=== PATIENT | female | born 1970 | race Caucasian/White ===

== ENCOUNTER → 2016-07-04 13:20 | Outpatient (CLI) | payer MEDICARE ==
[2013-04-14 14:31] VITALS: BMI 24.8
[~2016-07-04 13:20] MED LIST: ACIPHEX20 MG PO; ATIVAN2 MG PO; DURAGESIC1 PATCH .3; OXYCODONE HCL10 MG PO; OXYCONTIN80 MG PO; PHENAZOPYRIDIN100 MG PO; PHENERGAN25 M1 PO; PROZAC40 MG PO
== END | disposition home or self-care (01) ==
LOC: D.CT 06-27 17:30
DX: Z98.890 Other specified postprocedural states (principal)

== ENCOUNTER → 2017-05-11 22:30 | Outpatient (CLI) | payer MEDICARE ==
[2013-04-14 14:31] VITALS: BMI 24.8
== END | disposition home or self-care (01) ==
LOC: D.MAMMO 09:00
DX: N63.21 Unspecified lump in the left breast, upper outer quadrant (principal); Z80.3 Family history of malignant neoplasm of breast

== ENCOUNTER → 2017-08-24 11:22 | Outpatient (CLI) | payer MEDICARE ==
[2013-04-14 14:31] VITALS: BMI 24.8
== END | disposition home or self-care (01) ==
LOC: D.CT 08-10 11:30
DX: N63.21 Unspecified lump in the left breast, upper outer quadrant (principal)

== ENCOUNTER → 2018-11-11 08:56 | Outpatient (CLI) | payer MEDICARE ==
[2013-04-14 14:31] VITALS: BMI 24.8
== END | disposition home or self-care (01) ==
LOC: D.NM 08:56
PROVIDERS: ATTEND Emergency Medicine
DX: C50.012 Malignant neoplasm of nipple and areola, left female breast (principal)

== ENCOUNTER 2019-10-31 11:52 | Outpatient (CLI) | payer MEDICARE ==
[~2019-10-31] VITALS: Ht 172.7 cm; Wt 50.9 kg
[2019-10-31] MEDS ORDERED: RESTORIL15 MG PO (12:43)
[2019-10-31 12:54] VITALS: BP 85/52; Ht 172.7 cm; Wt 50.9 kg
--- NOTE | 2019-10-31 17:24 | NUR ---
1700 PORT FLUSHED WITH 10ML WITH NS. NEEDLE REMOVED AND BANDAID APPLIED
== END 2019-10-31 17:15 | disposition home or self-care (01) ==
LOC: D.OPS 11:52
PROVIDERS: ATTEND Emergency Medicine
DX: D64.9 Anemia, unspecified (principal); C50.919 Malignant neoplasm of unspecified site of unspecified female breast